=== PATIENT | female | born 1995 | race Caucasian/White ===

== ENCOUNTER 2018-12-26 21:12 | Emergency (ER) | payer OTHER ==
[~2018-12-26] VITALS: Ht 157.5 cm; Wt 61.2 kg
[2018-12-26 21:20] VITALS: BP 122/58
--- NOTE | 2018-12-26 21:25 | NUR ---
PATIENT UNABLE TO URINATE AT THIS TIME, PT GIVEN URINE CUP.
--- NOTE | 2018-12-26 22:38 | NUR ---
PT AMBULATED TO BED 5
--- NOTE | 2018-12-26 23:08 | NUR ---
PT TO ED WITH C/O URINARY URGENCY AND BURNING. NO BLADDER DISTENTION NOTED. PT DENIES OTHER S/S. PT PLACED INTO BED, PENDING MD MEHTA.
--- NOTE | 2018-12-27 00:01 | NUR ---
PATIENT RESTING AT THIS TIME, NO SIGNS OF DISTRESS.
[2018-12-27] MEDS ORDERED: SULFAMETH/TRIMETH DS 800/160MG 1 TAB PO ONE (00:25)
[2018-12-27] MEDS ORDERED: PHENAZOPYRIDINE 100 MG TAB PO ONE (00:25)
[2018-12-27] MEDS ORDERED: SULFAMETH/TRIMETH DS 800/160MG 1 TAB ONE (00:44)
[2018-12-27 00:55] VITALS: BP 120/68
--- NOTE | 2018-12-27 00:55 | NUR ---
Patient discharged with v/s stable. Written and verbal after care instructions given and explained. Patient alert, oriented and verbalized understanding of instructions. Ambulatory with steady gait. All questions addressed prior to discharge. ID band removed. Patient advised to follow up with PMD. Rx of PYRIDIUM 100MG, BACTRIM DS given. Patient educated on indication of medication including possible reaction and side effects. Opportunity to ask questions provided and answered.
== END 2018-12-27 00:55 | disposition home or self-care (01) ==
LOC: MED 21:12
DX: N39.0 Urinary tract infection, site not specified (principal)
CPT/HCPCS: 81002; 81025; 99283